=== PATIENT | male | born 1995 | race Caucasian/White ===

== ENCOUNTER 2017-06-23 17:36 | Emergency (ER) | payer OTHER ==
[2017-06-23 17:46] VITALS: TEMP 97.5
--- NOTE | 2017-06-23 20:28 | EDPHY ---
H & P Stated Complaint: l upper leg pain/full work up today at [facility] all wnl - Personal History Current Tetanus/Diphtheria Vaccine: Yes - Medical/Surgical History Hx Asthma: No Hx Chronic Respiratory Disease: No Hx Diabetes: No Hx Cardiac Disease: No Hx Renal Disease: No Hx Cirrhosis: No Hx Alcoholism: No Hx HIV/AIDS: No Hx Splenectomy or Spleen Trauma: No Other PMH: BACK PROB - Social History Smoking Status: Never smoked HPI/ROS: Chief complaint: Left upper leg pain History of present illness: This is a 21-year-old male who presents to the emergency department for left upper leg pain. Patient states he has had pain since February of this year. However does always been mild in nature and over the last few days it is significantly worsened. He describes pain on the anterior surface of his left thigh. Occasionally the pain will radiate down the leg and affect the inside aspect of the calf muscle. Over the last few days and has been so painful it has been difficult to move the leg. He denies any specific precipitating factors either recently or remotely when it 1st started in February such as trauma. He denies other associated signs or symptoms including no fevers, no abdominal pain, no nausea, vomiting or diarrhea, no low back pain, no urinary symptoms, no paresthesias, no saddle anesthesia, no weakness or paralysis, no bowel or bladder dysfunction. He did go toward in [facility] [employer] [facility] today for the pain. He reports he had an x-ray of his left upper leg and hip. He also reports to me that he had a D-dimer test that was normal. Given that pain persists he present here for further evaluation and care. Review of systems: A 10 point review of systems was obtained and other than described above was negative (Epifanio Gunderson) - Physical Exam Exam: General Appearance: Alert, nontoxic. Eyes: Pupils equal and round no pallor or injection. ENT, Mouth: Mucous membranes moist. Respiratory: There are no retractions, lungs are clear to auscultation. Cardiovascular: Regular rate and rhythm. Gastrointestinal: Abdomen is soft and non tender, no masses, bowel sounds normal. Neurological: Alert and oriented x4. Cranial nerves 2-12 grossly intact. Strength and sensation intact and symmetrical. Upper extremity reflexes are 2+ and symmetrical. Lower extremity reflexes are 1+ although sometimes difficult to elicit I am able to elicit them bilaterally with equal response. Straight leg raise test is equivocal on the left side negative on the right. He does appear to have some discomfort when he walks but he is able to maintain balance without difficulty. Skin: Warm and dry, no rashes. Musculoskeletal: The head is nontender without crepitus or bony deformity. Neck is supple non tender. The spine is nontender to palpation along its entire length without crepitus, bony deformity or step-off. He has pain with active range of motion of the left hip although pain is diminished when I passively range it. The rest of the left lower extremity and other extremities are unremarkable. Psychiatric: Patient is oriented X 3, there is no agitation. (Epifanio Gunderson) Constitutional: Initial Vital Signs Temperature (C) 36.4 C 06/23/17 17:44 Heart Rate 81 06/23/17 17:44 Respiratory Rate 17 06/23/17 17:44 Blood Pressure 125/85 H 06/23/17 17:44 O2 Sat (%) 95 06/23/17 17:44 O2 Delivery Mode Room Air Allergies/Adverse Reactions: No Known Allergies Allergy (Verified 06/23/17 17:43) Home Medications: Medication Instructions Recorded Omeprazole 06/23/17 Medical Decision Making - Diagnostics Imaging: Discussed imaging studies w/ call center representative Radiologist - Diagnostics Imaging Results: Imaging Impressions Lumbar Spine MRI 06/23/17 18:40 Impression: There is no focal disk herniation, or significant central canal or neural foraminal impingement. Findings were discussed with Epifanio Gunderson PA-C at 20:25, on 06/23/2017. ED Course/Re-evaluation: Patient is seen in conjunction with my secondary supervising physician Dr. Tony Oliva. Patient presents to the emergency department for left leg pain. The pain is primarily around the left anterior thigh. Occasionally it radiates into the left calf. On evaluation the leg is neurovascularly intact. Patient reports a normal x-ray of the left hip and upper leg as well as negative D- dimer today. I am concerned for lumbar radiculopathy of multiple etiologies therefore MRI is pursued and unremarkable. I discussed with patient at this time it is not clear as to the cause of his symptoms. He will be discharged home. Home care is discussed including pain management. He is asked to follow up with [facility] again for recheck as well as Orthopedics. Strict return precautions were provided. The patient voiced understanding and agreement with plan. (Epifanio Gunderson) Differential Diagnosis: Included but not limited to musculoskeletal pain, lumbar radiculopathy, vascular pain from arterial occlusion or DVT unlikely given good pulses and negative D-dimer reported by patient (Epifanio Gunderson) Other Provider: PHYSICIAN DOCUMENTATION: The patient was evaluated and managed by the Physician [employer]her And Crusher Tender and myself. I have reviewed the chart and agree with the findings and plan of care as documented. In addition, I examined the patient myself at 2054. History confirmed as most of the pain is in his anterior left thigh. Physical findings as follows: Compartments are soft and left thigh and calf, no skin changes, toes downgoing bilaterally, normal dorsalis pedis pulse, pain is worse with straight raising on the left. Unlikely to have spinal cord compression, compartment syndrome, fracture, acute infection or fasciitis or cellulitis or myositis. DVT considered, but had a negative D-dimer an x-ray at [facility] today per the patient. I am the secondary supervising physician. (Tony Oliva) - Data Points Medications Given: Discontinued Medications Hydrocodone Bitart/Acetaminophen ([place] 5/325mg Prepack#6) 1 btl TAKEHOME EDNOW ONE Stop: 06/23/17 20:37 Last Admin: 06/23/17 20:49 Dose: 1 btl Ketorolac Tromethamine (Toradol) 60 mg IM EDNOW ONE Stop: 06/23/17 20:37 Last Admin: 06/23/17 21:01 Dose: Not Given Ketorolac Tromethamine (Toradol) 30 mg IM EDNOW ONE Stop: 06/23/17 20:43 Last Admin: 06/23/17 20:48 Dose: 30 mg Departure - Departure Disposition: Home, Routine, Self-Care Clinical Impression: Left leg pain Condition: Good Instructions: Leg Pain (ED) Additional Instructions: Follow-up with your primary care doctor and orthopedic doctor for recheck In regards to pain control see the following: Use ibuprofen [600] mg [3] times a day for the next 2-3 days for pain In addition You have been prescribed [[place]] for pain. [[place]] contains Tylenol, do not take extra Tylenol/acetaminophen/Apap with it. It is sedating. If symptoms worsen or new symptoms develop return to the emergency room for recheck Referrals: NONE *PRIMARY CARE P,. [Primary Care Provider] - As per Instructions [facility] [Clinic] - As per Instructions Hilario Jackson MD [Medical Doctor] - As per Instructions
[2017-06-23] MEDS ORDERED: KETOROLAC 30 MG/1 ML SDV IM ONE ×2 (20:36→20:42)
[2017-06-23] MEDS ORDERED: HYDROCOD/APAP 5/325 PREPACK#6 BTL TAKEHOME ONE (20:36)
[2017-06-23 21:38] VITALS: BP 127/73; PULSE 63; RESP 14; O2SAT 97
== END 2017-06-23 21:36 | disposition home or self-care (01) ==
DX: M79.605 Pain in left leg (principal)
CPT/HCPCS: J1885

== ENCOUNTER → 2017-07-01 | Outpatient (CLI) | payer OTHER ==
[~2017-07-01] MED LIST: LIDOCAINE 1% 300 MG/30 ML SDV ONE
== END ==
LOC: FIMAGING 11:00
PROVIDERS: ATTEND Orthopaedic Surgery
PROC: 0S9B3ZZ Drainage of Left Hip Joint, Percutaneous Approach (ICD-10-PCS; principal; 2017-07-01)
DX: M25.452 Effusion, left hip (principal)

== ENCOUNTER 2017-12-31 21:50 | Emergency (ER) | payer OTHER ==
--- NOTE | 2017-12-31 22:16 | EDPHY ---
H & P Stated Complaint: L hip surg 12/19, concerned for DVT, L calf pain Time Seen by Provider: 12/31/17 22:01 HPI/ROS: CHIEF COMPLAINT: Possible DVT left lower extremity HISTORY OF PRESENT ILLNESS: 22-year-old male postop day 12 post left hip arthroscopic surgery for torn labrum by Dr. Albino Patel has been going to physical therapy, complaining of left calf pain and cramping which started today. No discoloration. Hip is been feeling well. No dyspnea. PRIMARY CARE PROVIDER: REVIEW OF SYSTEMS: A ten point review of systems was performed and is negative with the exception of the items mentioned in the HPI PAST MEDICAL & SURGICAL HISTORY: Postop day [address] hip surgery by Dr. Albino Patel SOCIAL HISTORY: Nonsmoker PHYSICAL EXAM (Prior to examination, patient consented to physical exam, hands were washed and my usual and customary physical exam procedures followed) 1) GENERAL: Well-developed, well-nourished, alert and oriented. Appears to be in no acute distress. 2) HEAD: Normocephalic, atraumatic 3) HEENT: Pupils equal, round, reactive to light bilaterally. Sclera anicteric. 4) NECK: Full range of motion, no meningeal signs. 5) LUNGS: Clear auscultation bilaterally, no wheezes, no rhonchi, no retractions. 6) HEART: Regular rate and rhythm, no murmur, no heave, no gallop. 7) ABDOMEN: No guarding, no rebound, no focal tenderness, negative McBurney's 8) MUSCULOSKELETAL: Left lower extremity: Ecchymosis proximal thigh noted with soft compartments. No calf pain or cramping negative Homans no palpable cord. Soft compartments. DP PT pulses present and brisk. Normal color normal temperature distally. Cap refill less than 2 sec. 9) BACK:, no visual or palpable abnormality. 10) SKIN: No rash, no petechiae. 11) Psychiatric: Patient is oriented X 3, there is no agitation. DIFFERENTIAL DIAGNOSIS: In no particular include but limited to postoperative pain, DVT, compartment syndrome - Personal History Current Tetanus Diphtheria and Acellular Pertussis (TDAP): Yes Tetanus Vaccine Date: 2015~ - Medical/Surgical History Hx Asthma: No Hx Chronic Respiratory Disease: No Hx Diabetes: No Hx Cardiac Disease: No Hx Renal Disease: No Hx Cirrhosis: No Hx Alcoholism: No Hx HIV/AIDS: No Hx Splenectomy or Spleen Trauma: No Other PMH: BACK PROB, "cardiac bigeminey when younger", hip surg 12/19/17 - Social History Smoking Status: Never smoked Constitutional: Initial Vital Signs Temperature (C) 36.7 C 12/31/17 21:57 Heart Rate 101 H 12/31/17 21:57 Respiratory Rate 19 12/31/17 21:57 Blood Pressure 122/75 H 12/31/17 21:57 O2 Sat (%) 96 12/31/17 21:57 O2 Delivery Mode Room Air Allergies/Adverse Reactions: No Known Allergies Allergy (Verified 12/31/17 21:57) Home Medications: Medication Instructions Recorded Omeprazole 06/23/17 Medical Decision Making - Diagnostics Imaging Results: Imaging Impressions Extremity Venous Study 12/31/17 22:10 Impression: No deep venous thrombosis left leg. Results called and discussed with Johnny Yarbrough PA-C, at 12/31/2017 23:14. Images reviewed myself ED Course/Re-evaluation: 10:16 p.m.: Will obtain ultrasound left lower extremity and re-evaluate. I saw this patient independently based on established practice protocols. Care of patient under supervision of secondary supervising physician Dr Guerrero . 11:15 p.m.: Ultrasound is negative for DVT by staff radiologist interpretation. Patient re-evaluated myself at this time. He is neurovascular intact with soft compartments. Plan will be discharge and follow up with orthopedic surgeon as directed previously. Usual and customary discharge precautions instructions provided. Departure - Departure Disposition: Home, Routine, Self-Care Clinical Impression: Pain of left calf Condition: Good Instructions: Leg Cramps (ED), Muscle Cramp (ED) Additional Instructions: Return to the ER immediately if you experience discoloration, have worsening pain, numbness, tingling, or any other symptoms that concern you. If you received x-rays in the emergency department today, be advised, that ligamentous , tendon, muscular, and other non-bony injury cannot be fully ruled out. Try to keep your affected extremity elevated above the level of your chest, and keep cold packs on the affected area, for the next 48 hours. Referrals: Albino Patel MD [Primary Care Provider] - As per Instructions
[2017-12-31 23:32] VITALS: BP 113/79
== END 2017-12-31 23:30 | disposition home or self-care (01) ==
DX: M79.662 Pain in left lower leg (principal)

== ENCOUNTER 2018-04-08 22:59 | Emergency (ER) | payer OTHER ==
--- NOTE | 2018-04-09 00:27 | EDPHY ---
H & P Stated Complaint: L hip pain after playing hockey yest Time Seen by Provider: 04/09/18 00:01 HPI/ROS: HPI The patient presents with left hip pain and stiffness which is gotten progressively worse over the last 2 days. He has a history of a left-sided labral tear and is status post arthroscopic her operation performed December [address] Albino Patel he was given permission to resume ice skating 2 days ago and thinks he may have overdone it. Since this he has had progressive achy left- sided hip pain associated with stiffness which is moderate in severity. He does not have any numbness or weakness of his leg. He did not have any direct trauma to his hip. REVIEW OF SYSTEMS 10 systems were reviewed and negative with the exception of the elements mentioned in the history of present illness. PMHx: Labral tear as above Soc Hx: Here with a friend PHYSICAL General Appearance: Alert, no distress Eyes: Pupils equal and round no pallor or injection ENT, Mouth: Mucous membranes moist Respiratory: There are no retractions, lungs are clear to auscultation Cardiovascular: Regular rate and rhythm Gastrointestinal: Abdomen is soft and non-tender, no masses, bowel sounds normal Neurological: A&O, moves all extremities Skin: Warm and dry, no rashes Musculoskeletal: Neck is supple non tender Extremities: symmetrical, full range of motion , pain with internal rotation of right hip Psychiatric: Patient is oriented X 3, there is no agitation Source: Patient Exam Limitations: No limitations - Personal History Current Tetanus Diphtheria and Acellular Pertussis (TDAP): Yes Tetanus Vaccine Date: 2015~ - Medical/Surgical History Hx Asthma: No Hx Chronic Respiratory Disease: No Hx Diabetes: No Hx Cardiac Disease: No Hx Renal Disease: No Hx Cirrhosis: No Hx Alcoholism: No Hx HIV/AIDS: No Hx Splenectomy or Spleen Trauma: No Other PMH: BACK PROB, "cardiac bigeminey when younger", hip surg 12/19/17, - Social History Smoking Status: Never smoked Constitutional: Initial Vital Signs Temperature (C) 36.3 C 04/08/18 23:01 Heart Rate 70 04/08/18 23:01 Respiratory Rate 16 04/08/18 23:01 Blood Pressure 102/59 L 04/08/18 23:01 O2 Sat (%) 94 04/08/18 23:01 O2 Delivery Mode Room Air Allergies/Adverse Reactions: No Known Allergies Allergy (Verified 12/31/17 21:57) Home Medications: Medication Instructions Recorded NK [No Known Home Meds] 04/08/18 Medical Decision Making Differential Diagnosis: This is a 22-year-old male who is several months status post hip arthroscopic knee for labral tear who recently return to playing ice hockey and now presents with left hip pain and stiffness. On exam he has full range of motion though pain with internal rotation. He has mild tenderness to his lateral hip with no overlying skin changes. Differential diagnosis includes hip strain, recurrent labral tear, less likely hip dislocation. Patient refused x-ray. He would like a note for work. He is able to follow up with his primary orthopedist any will be discharged from the emergency in the department with instructions for rest, ice, anti-inflammatories as needed. Departure - Departure Disposition: Home, Routine, Self-Care Clinical Impression: Hip pain, left Condition: Good Instructions: Hip Pain (ED) Additional Instructions: Please follow-up with Dr. Patel in the next few days. You should return to the emergency department if your worse in any way. Referrals: Albnio Patel MD [Medical Doctor] - As per Instructions Stand Alone Forms: Work Excuse
[2018-04-09 00:44] VITALS: BP 132/70
== END 2018-04-09 00:42 | disposition home or self-care (01) ==
DX: M25.552 Pain in left hip (principal)